=== PATIENT | female | born 1955 | race Hispanic/Latino ===

== ENCOUNTER → 2017-02-21 | Day surgery (SDC) | payer OTHER ==
--- NOTE | 2017-02-19 13:14 | History & Physical Pre-Op ---
General Information and HPI History of Present Illness: Mrs. Stovall is a 61-year-old female with a long-standing and worsening complaint of painful hallux limitus involving both her left and right feet. The patient also complains of painful plantar fasciitis right foot. The patient has undergone an extended course of conservative care, including shoe gear and activity modification, rest, immobilization course of NSAIDs. None of this is yielded her any significant relief. The patient presents today for preoperative surgical consultation. Past History Medical History Cardiovascular: hypertension Respiratory: asthma Gastrointestinal: GERD Surgical History Pertinent Surgical History: none (Excision of cyst leg, D&C) Review of Systems Review of Systems: Unremarkable except for that noted in history of present illness Exam & Diagnostic Data Physical Exam: Lungs clear bilaterally. Heart sounds rate and rhythm regular. Lower extremity physical exam demonstrates intact pedal pulses bilaterally. Pulses dorsalis pedis and posterior tibial arteries are palpable bilaterally. Patient without any sensory motor deficits. Deep tendon reflexes grossly intact. Patient noted to have significant pain with palpation range of motion through the left and right first metatarsophalangeal joints. The range of motion is noted to be diminished, especially in dorsiflexion. Crepitus is identified with range of motion. Patient noted to have same and pain with palpation the plantar medial aspect of the right heel. Negative Tinel sign noted with percussion the posterior tibial nerve. Assessment/Plan Assessment/Plan: Painful hallux limitus bilaterally with plantar fasciosis right. A lengthy discussion reviewing both surgical and conservative options was held the patient at bedside and the patient elects to go forward with surgery despite the risks. As Ranked By This Provider Problem List: 1. Hallux rigidus of both feet Attending MD Review Statement Attending Statement Attending MD Statement: examined this patient
[~2017-02-21] VITALS: Ht 160 cm; Wt 108.4 kg
--- NOTE | 2017-02-24 12:55 | Operative Report ---
Operative/Inv Procedure Report Surgery Date: 02/21/17 Name of Procedure: 1 [place] bunionectomy right foot 2 [place] bunionectomy left foot 3 open plantar fasciotomy right 4 intraoperative administration of ankle block anesthesia Pre-Operative Diagnosis: 1 hallux limitus right 2 hallux limitus left 3 plantar fasciitis right Post-Operative Diagnosis: The same Estimated Blood Loss: scant Surgeon/Milk House Worker: OSMEL NORIEGA DPM Anesthesia: moderate sedation, block Operative/Procedure Note Note: After obtaining informed consent the patient was brought to the operating room and placed on the operating table in the supine position. The patient isn't securely fastened to the operating table utilizing safety belt. After administration of IV sedation, 10 mL of 0.5% Marcaine plain was infiltrated about the patient's right and left ankles. A well-padded ankle tourniquet was placed about the patient's bilateral lower extremities. 2 g of Ancef were delivered intravenously times one dose. The left right feet were then scrubbed prepped and draped in usual aseptic manner. The right lower extremity was elevated to examine to limb, which point the ankle tourniquet was inflated 250 mmHg. Attention directed dorsal aspect the right foot where 6 cm linear incision was made just medial to the course of the extensive list lungs tendon. The dissection was then carried down subtenons tissues and a linear capsulotomy was performed exposing the medial eminence. This was removed sagittal bone saw. The dissection was then continued onto the base of proximal phalanx with the periosteum was incised reflected. The proximal 25% of the proximal phalanx was resected and the capsular structures were repaired with 3-0 Vicryl. Subtenons tissues reapproximated 4-0 Vicryl and the skin is reprepped with 4-0 nylon. Attention was then directed to the plantar medial heel, where a 3 cm linear incision incision was made at the level of the dorsal plantar skin. It was dissected to the medial margin of the plantar fascia which was removed from its origin on the medial tubercle calcaneal tuberosity. The deep tissues reapproximated 3-0 Vicryl and the skin edges reprepped with 3-0 nylon. The incisions were dressed with Xeroform 4 x 4's Kerlix and Kayode wrap. The tourniquet was then deflated and the left lower extremity was elevated. The ankle tourniquet was inflated 250 mmHg. Attention directed dorsal aspect the left foot where again a 6 cm linear incision was made just medial to the course of the extensor listless longus tendon. Dissection was then carried down to the capture structures where again the medial eminence was exposed and this was removed with a sagittal bone saw. The dissection was then carried onto the base of proximal phalanx which was incised and reflected. The proximal phalanx was cut with a sagittal bone saw and passed from the operative field. The capture structures reapproximated 3-0 Vicryl and the subcutaneous skin edges reprepped with 3-0 nylon. Incision was then dressed with Xeroform 4 x 4's Kerlix and an Kayode wrap. The patient was noted tolerate both procedure and anesthesia well and the patient was transported from the operating room to recovery by sent stable best assess intact all all digits bilateral feet.
== END ==
LOC: STS 01:05
DX: M20.5X2 Other deformities of toe(s) (acquired), left foot (principal); M20.5X1 Other deformities of toe(s) (acquired), right foot; M72.2 Plantar fascial fibromatosis; I10 Essential (primary) hypertension; J45.909 Unspecified asthma, uncomplicated
CPT/HCPCS: J0690; J1100; J2001; J2250